=== PATIENT | female | born 2005 | race Caucasian/White ===

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

== ENCOUNTER 2024-03-04 17:00 | Emergency (ER) | payer OTHER ==
--- NOTE | 2024-03-04 17:14 | ERPHSYRPT ---
- History of Present Illness Source: patient, family Exam Limitations: no limitations Timing/Duration: day(s) (2), improved Quality: sharpness, stabbing Onset Location: suprapubic (Right greater than left but bilateral) Pain Radiation: none Severity of Pain-Max: moderate Severity of Pain-Current: mild Sexual intercourse history: non-contributory Associated Symptoms: fever, dysuria, , vaginal discharge <PHILL GARCIA - Last Filed: 03/04/24 18:47> <DON SAPP - Last Filed: 03/04/24 21:01> - History of Present Illness Time Seen by Provider: 03/04/24 17:14 Physician History: This is a 18-year-old white female patient of Dr. Bush who presents to the emergency department by private vehicle accompanied by her mother. She is here because approximately 2 days ago she had bilateral suprapubic cramping with the right side worse than the left associated with vaginal spotting. The vaginal spotting decreased but today she had cramping in the same area that was more generalized and equal in intensity. The pain is sharp. Yesterday she also had associated fever that was low-grade at 99.9 F. Patient has never had any abdominal surgeries in the past. Her last menstrual period began approximately January 15. The gestational age is no more than 6 weeks. Patient took a test 2 days ago and it was positive. Patient takes no medications chronically and she has no known drug allergies. (PHILL GARCIA) Allergies/Adverse Reactions: No Known Drug Allergies Allergy (Unverified 10/04/13 22:04) Home Medications: No Reportable Medications [No Reported Medications] 10/04/13 [History] Travel Risk - International Travel Have you traveled outside of the country in past 3 weeks: No - Emerging Infectious Disease Are you exhibiting symptoms associated with any current EIDs: No <PHILL GARCIA - Last Filed: 03/04/24 18:47> - Review of Systems Constitutional: Fever (Yesterday but none today) Eyes: No Symptoms Ears, Nose, & Throat: No Symptoms Respiratory: No Symptoms Cardiac: No Symptoms Abdominal/Gastrointestinal: Abdominal Pain Genitourinary Symptoms: Dysuria, Vaginal Bleeding Musculoskeletal: No Symptoms Skin: No Symptoms Neurological: No Symptoms Psychological: No Symptoms Endocrine: No Symptoms Hematologic/Lymphatic: No Symptoms Immunological/Allergic: No Symptoms All Other Systems: Reviewed and Negative <GARCIA,PHILL Jeffery - Last Filed: 03/04/24 18:47> - Past Medical History Pertinent Past Medical History: No (healthy child) Neurological History: No Pertinent History ENT History: No Pertinent History Cardiac History: No Pertinent History Respiratory History: No Pertinent History Endocrine Medical History: No Pertinent History Musculoskeletal History: Other GI Medical History: No Pertinent History History: No Pertinent History Psycho-Social History: No Pertinent History Female Reproductive Disorders: No Pertinent History - Past Surgical History Past Surgical History: No Neuro Surgical History: No Pertinent History Cardiac: No Pertinent History Respiratory: No Pertinent History Gastrointestinal: No Pertinent History Genitourinary: No Pertinent History Musculoskeletal: No Pertinent History Female Surgical History: No Pertinent History - Social History Smoking Status: Never smoker Exposure to second hand smoke: Yes Drug Use: none Patient 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) <JOSEPHILL MiloMary - Last Filed: 03/04/24 18:47> - Physical Exam General Appearance: no apparent distress, alert, anxiety Eye Exam: PERRL/EOMI, eyes nml inspection Ears, Nose, Throat Exam: normal ENT inspection, moist mucous membranes Neck Exam: normal inspection, non-tender, supple, full range of motion Respiratory Exam: airway intact, No chest tenderness, No respiratory distress Cardiovascular Exam: tachycardia Gastrointestinal/Abdomen Exam: soft, normal bowel sounds, tenderness (Mild tenderness bilateral suprapubic regions) Pelvic Exam: not done Rectal Exam: not done Back Exam: normal inspection, normal range of motion, No CVA tenderness, No v ertebral tenderness Extremity Exam: normal inspection, normal range of motion, pelvis stable Neurologic Exam: alert, oriented x 3, cooperative, mailing machine assistant II-XII nml as tested, nml cerebellar function, nml station & gait, sensation nml Skin Exam: normal color, warm, dry Lymphatic Exam: No adenopathy SpO2 Interpretation: normal O2 Delivery: Room Air <GARCIAPHILL Jeffery - Last Filed: 03/04/24 18:47> - Nursing Vital Signs Nursing Vital Signs: Initial Vital Signs Temperature 98.2 F 03/04/24 17:07 Pulse Rate 120 H 03/04/24 17:07 Respiratory Rate 18 03/04/24 17:07 Blood Pressure 144/102 03/04/24 17:07 O2 Sat by Pulse Oximetry 100 03/04/24 17:07 Pain Scale Pain Intensity 4 - Course Nursing assessment & vital signs reviewed: Yes <PHILL GARCIA - Last Filed: 03/04/24 18:47> Ordered Tests: Active Orders 24 hr Category Date Time Status IV Insertion STAT Care 03/04/24 17:29 Active OB <14 WKS 1ST GESTATION [US] Stat Exams 03/04/24 19:02 Taken AMYLASE Stat Lab 03/04/24 17:46 Completed CBC W DIFF Stat Lab 03/04/24 17:46 Completed CMP Stat Lab 03/04/24 17:46 Completed CULTURE,URINE Stat Lab 03/04/24 17:32 Received HCG QUALITATIVE, SERUM Stat Lab 03/04/24 17:46 Completed HCG, Quantitative (Inhouse) Stat Lab 03/04/24 17:46 Completed LIPASE Stat Lab 03/04/24 17:46 Completed Manual Differential NC Stat Lab 03/04/24 17:46 Completed UA W/RFX UR CULTURE Stat Lab 03/04/24 17:32 Completed Lab/Rad Data: Laboratory Result Diagrams 03/04/24 17:46 03/04/24 17:46 Laboratory Results 03/04/24 03/04/24 03/04/24 Range/Units 17:46 17:46 17:46 WBC (3.98-10.04) x10^3/uL RBC (3.93-5.22) x10^6/uL Hgb (11.2-15.7) g/dL Hct (34.1-44.9) % MCV (79.4-94.8) fL MCH (25.6-32.2) pg MCHC (32.2-35.5) g/dL RDW (11.7-14.4) % Plt Count (182-369) x10^3/uL MPV (9.4-12.3) fL Sodium 137 (135-145) mmol/L Potassium 3.6 (3.5-5.1) mmol/L Chloride 102 (98-107) mmol/L Carbon Dioxide 24 (22-30) mmol/L Anion Gap 15.4 H (5-15) MEQ/L BUN 5 L (7-17) mg/dL Creatinine 0.62 (0.52-1.04) mg/dL Estimated GFR 131.5 ML/MIN Glucose 122 H (74-106) mg/dL Calcium 10.1 (8.4-10.2) mg/dL Total Bilirubin 0.70 (0.2-1.3) mg/dL AST 22 (14-36) U/L ALT 20 (0-35) U/L Alkaline Phosphatase 52 (38-126) U/L Serum Total Protein 7.7 (6.3-8.2) g/dL Albumin 4.7 (3.5-5.0) g/dL Amylase 55 (30-110) U/L Lipase 30 (23-300) U/L Serum HCG, Qual POSITIVE (NEGATIVE) Beta HCG, Quant 6584.2 mIU/ml Urine Color (Yellow) Urine Appearance (Clear) Urine pH (4.6-8.0) Ur Specific [place] (1.005-1.030) Urine Protein (Negative) Urine Glucose (UA) (Negative) mg/dL Urine Ketones (Negative) Urine Blood (Negative) Urine Nitrite (Negative) Urine Bilirubin (Negative) Urine Urobilinogen (0.2) mg/dL Ur Leukocyte Esterase (Negative) U Hyaline Cast (Auto) (0-2) /LPF Urine Microscopic RBC (0-5) /HPF Urine Microscopic WBC (0-5) /HPF Ur Epithelial Cells (None Seen) /HPF Urine Bacteria (None Seen) /HPF Urine Culture Reflexed (NO) 03/04/24 03/04/24 Range/Units 17:46 17:32 WBC 9.0 (3.98-10.04) x10^3/uL RBC 4.38 (3.93-5.22) x10^6/uL Hgb 13.5 (11.2-15.7) g/dL Hct 38.2 (34.1-44.9) % MCV 87.2 (79.4-94.8) fL MCH 30.8 (25.6-32.2) pg MCHC 35.3 (32.2-35.5) g/dL RDW 12.3 (11.7-14.4) % Plt Count 457 H (182-369) x10^3/uL MPV 8.4 L (9.4-12.3) fL Sodium (135-145) mmol/L Potassium (3.5-5.1) mmol/L Chloride (98-107) mmol/L Carbon Dioxide (22-30) mmol/L Anion Gap (5-15) MEQ/L BUN (7-17) mg/dL Creatinine (0.52-1.04) mg/dL Estimated GFR ML/MIN Glucose (74-106) mg/dL Calcium (8.4-10.2) mg/dL Total Bilirubin (0.2-1.3) mg/dL AST (14-36) U/L ALT (0-35) U/L Alkaline Phosphatase (38-126) U/L Serum Total Protein (6.3-8.2) g/dL Albumin (3.5-5.0) g/dL Amylase (30-110) U/L Lipase (23-300) U/L Serum HCG, Qual (NEGATIVE) Beta HCG, Quant mIU/ml Urine Color Yellow (Yellow) Urine Appearance Clear (Clear) Urine pH 5.5 (4.6-8.0) Ur Specific [place] 1.020 (1.005-1.030) Urine Protein Trace A (Negative) Urine Glucose (UA) Negative (Negative) mg/dL Urine Ketones 40 A (Negative) Urine Blood Large A (Negative) Urine Nitrite Negative (Negative) Urine Bilirubin Negative (Negative) Urine Urobilinogen 0.2 (0.2) mg/dL Ur Leukocyte Esterase Negative (Negative) U Hyaline Cast (Auto) 3-5 A (0-2) /LPF Urine Microscopic RBC 21-50 A (0-5) /HPF Urine Microscopic WBC 0-2 (0-5) /HPF Ur Epithelial Cells None Seen (None Seen) /HPF Urine Bacteria None Seen (None Seen) /HPF Urine Culture Reflexed YES (NO) - Progress Progress: improved, re-examined Air Movement: good <PHILL GARCIA - Last Filed: 03/04/24 18:47> - Progress Blood Culture(s) Obtained: No Antibiotics given: No Counseled pt/family regarding: lab results, diagnosis, need for follow-up, rad results <DON SAPP - Last Filed: 03/04/24 21:01> - Progress Progress Note: 03/04/24 17:52 My medical decision making and the assignment of moderate complexity to this patient's medical issue today is based on review of the patient's past medical history, review of the patient's medication list, review the patient drug allergy list, history present illness and physical findings on examination. The workup in the patient includes placement of an intravenous line, CBC, CMP, serum test, urinalysis, serum quantitative test, amylase and lipase. Differential diagnosis includes but is not limited to miscarriage, impending miscarriage, ovarian cyst, ectopic , acute appendicitis 03/04/24 18:47 I am transferring care of this patient to Dr. Don Sapp at shift change. He will follow-up on pending studies and make final disposition. (PHILL GACRIA) 18-year-old female presents to our ED vaginal bleeding. Patient evaluated by Dr. Garcia. Dr. Sapp advised to follow-up on pending ultrasound. Ultrasound reveals a viable 6-week 3-day old IUP. The IUP appears to be at the lower uterine segment. heart tone is 85. Vaginal bleeding is minimal at this time. Cramping significantly improved. Patient states she is ready for discharge. Urine GC chlamydia and vaginal panel pending. Patient self swabbed for vaginal panel. We will follow-up on these laboratory findings and notify patient of any abnormalities. At this point patient has not declared a [employer] [facility] physician to follow-up with. Patient states she will follow-up with her primary care doctor in the meantime. Beta quant is 6584. Vital stable. Patient resting comfortably. Patient eating a Ramirez sandwich. Patient states she is ready for discharge. Mother at bedside. They voiced no other complaints or c oncerns at this time. Portions of this note were created with voice recognition technology. There may be grammatical, spelling, punctuation or sound alike errors 03/04/24 20:57 (DON SAPP) Medical Desision Making - Independent Historian Additional History obtained from: Mother <PHILL GARCIA - Last Filed: 03/04/24 18:47> - Departure Departure Disposition: Home Critical Care Time: No <PHILL GARCIA - Last Filed: 03/04/24 18:47> <DON SAPP - Last Filed: 03/04/24 21:01> - Departure Clinical Impression: Vaginal bleeding affecting early , Suprapubic pain, acute, Threatened miscarriage in early Condition: Stable Referrals: KAYCE BUSH MD [Primary Care Provider] - Follow up/PCP as directed Additional Instructions: Discharge/Care Plan FELIBERTO HUYNH was seen on 03/04/24 in the Emergency Room. The patient was counseled regarding Diagnosis,Lab results, Imaging studies, need for follow up a nd when to return to the Emergency Room. Prescriptions given: Discharge Note I have spoken with the patient and/or caregivers. I have explained the patient's condition, diagnosis and treatment plan based on the information available to me at this time. I have answered the patient's and/or caregiver's questions and addressed any concerns. The patient and/or caregivers have as good understanding of the patient's diagnosis, condition and treatment plan as can be expected at this point. The vital signs have been stable. The patient's condition is stable and appropriate for discharge from the emergency department. The patient will pursue further outpatient evaluation with the primary care physician or other designated or consulting physician as outlined in the discharge instructions. The patient and/or caregivers are agreeable to this plan of care and follow-up instructions have been explained in detail. The patient and/or caregivers have received these instruction. The patient/and or caregivers are aware that any significant change in condition or worsening of symptoms should prompt an immediate return to this or the closest emergency department or call 911.
[2024-03-04 17:19] VITALS: TEMP 98.2
[2024-03-04 17:53] LABS: Hematocrit 38.2 % (34.1-44.9); Hemoglobin 13.5 g/dL (11.2-15.7); Mean Cell Volume 87.2 fL (79.4-94.8); Mean Corpuscular Hemoglobin 30.8 pg (25.6-32.2); Mean Corpuscular Hgb Concent. 35.3 g/dL (32.2-35.5); Mean Platelet Volume 8.4 fL (9.4-12.3); Platelet Count 457 x10^3/uL (182-369); Red Blood Count 4.38 x10^6/uL (3.93-5.22); Red Cell Distribution Width 12.3 % (11.7-14.4)
[2024-03-04 18:00] LABS: Appearance Clear (Clear); Bacteria None Seen /HPF (None Seen); Bilirubin Negative (Negative); Blood Large (Negative); Epithelial Cells None Seen /HPF (None Seen); Glucose, Urine Negative (Negative); Ketones 40 (Negative); Leukocyte Esterase Negative (Negative); Nitrite Negative (Negative); Ph 5.5 (4.6-8.0); Protein,Urine Dip Trace (Negative); RBC 21-50 /HPF (0-5); Urobilinogen 0.2 mg/dL (0.2); WBC 0-2 /HPF (0-5)
[2024-03-04 18:01] LABS: HCG SERUM TEST POSITIVE (NEGATIVE)
[2024-03-04 18:08] LABS: ALBUMIN 4.7 g/dL (3.5-5.0); ANION GAP 15.4 MEQ/L (5-15); BILIRUBIN,TOTAL 0.7 mg/dL (0.2-1.3); Calcium 10.1 mg/dL (8.4-10.2); Creatinine 1 0.62 mg/dL (0.52-1.04); EST GLOMERULAR FILTRATION RATE 131.5 ML/MIN; Potassium 3.6 mmol/L (3.5-5.1); Total Protein 7.7 g/dL (6.3-8.2)
[2024-03-04 19:19] VITALS: RESP 18; O2SAT 98
[2024-03-04 20:43] VITALS: BP 144/97; PULSE 80
--- NOTE | 2024-03-04 21:01 | XRAY ---
Indication: Vaginal bleeding. Spotting. Two-dimensional transvaginal early OB ultrasound performed. Comparison: None Single intrauterine gestational sac with mean sac diameter 0.54 cm, too small to calculate gestational age. Single pole with mean crown-rump length 0.64 cm corresponding to 6 weeks 3 days. heart rate 85 BPM. Tiny 3 x 4 mm subchorionic hemorrhage. Impression: Single viable intrauterine measuring 6 weeks 3 days. Expected date confinement is October 25, 2024. Tiny subchorionic hemorrhage. Comment: Preliminary report was given.
[2024-03-04] MEDS ORDERED: TYLENOL 325 MG ONE (21:08)
[2024-03-04] MEDS: TYLENOL 325 MG PO ONE (21:10)
[2024-03-04 21:50] LABS: Candida Group NOT DETECTED (NEGATIVE); Candida glab/krus NOT DETECTED (NEGATIVE)
[2024-03-04 23:58] LABS: ANISOCYTOSIS 1+; ATYPICAL LYMPHS 2 %; Basophil 2 % (0.1-1.2); Lymphocytes 30 % (19.3-51.7); Macrocytosis 1+; Monocyte 10 % (4.7-12.5); Neutrophils 56 % (34.0-71.1); Platelet Estimate INCREASED (NORMAL); Total Cells Counted 100
== END 2024-03-04 21:19 | disposition home or self-care (01) ==
LOC: ED 17:00
DX: O20.0 Threatened abortion (principal); Z3A.01 Less than 8 weeks gestation of pregnancy; R10.2 Pelvic and perineal pain
CPT/HCPCS: 36415; 76801; 80053; 81001; 82150; 83690; 84702; 84703; 85025; 87086; 87481; 87661; 87801; 99284; A9270-GY

== ENCOUNTER 2024-03-13 15:20 | Emergency (ER) | payer OTHER ==
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
[2024-03-13 15:35] VITALS: RESP 20; TEMP 98.1; O2SAT 100
[2024-03-13 16:40] LABS: Appearance Clear (Clear); Bacteria None Seen /HPF (None Seen); Bilirubin Negative (Negative); Blood Negative (Negative); Epithelial Cells None Seen /HPF (None Seen); Glucose, Urine Negative (Negative); Hyaline Casts NONE SEEN /LPF (0-2); Ketones Negative (Negative); Leukocyte Esterase Negative (Negative); Nitrite Negative (Negative); Protein,Urine Dip Negative (Negative); RBC 0-2 /HPF (0-5); Specific Gravity <=1.005 (1.005-1.030); Urobilinogen 0.2 mg/dL (0.2); WBC 0-2 /HPF (0-5)
[2024-03-13 16:43] VITALS: PULSE 102
[2024-03-13 16:55] LABS: Absolute Neutrophil Ct (ANC) 5.44 x10^3/uL (1.56-6.13); BASOPHIL % 0.6 % (0.1-1.2); Basophil (Absolute #) 0.05 x10^3/uL (0.01-0.08); Eosinophil % 1.3 % (0.7-5.8); Hematocrit 39.3 % (34.1-44.9); Hemoglobin 13.3 g/dL (11.2-15.7); IMMATURE GRAN # 0.01 x10^3u/L (0.001-0.031); IMMATURE GRAN % 0.1 % (0.001-0.429); Lymphocyte (Absolute #) 1.64 x10^3/uL (1.18-3.74); Lymphocytes % 21.1 % (19.3-51.7); Mean Cell Volume 88.5 fL (79.4-94.8); Mean Corpuscular Hgb Concent. 33.8 g/dL (32.2-35.5); Mean Platelet Volume 8.8 fL (9.4-12.3); Monocyte (Absolute #) 0.53 x10^3/uL (0.24-0.86); Monocytes % 6.8 % (4.7-12.5); Neutrophil % 70.1 % (34.0-71.1); Platelet Count 440 x10^3/uL (182-369); Red Blood Count 4.44 x10^6/uL (3.93-5.22); Red Cell Distribution Width 12.7 % (11.7-14.4); White Blood Count 7.8 x10^3/uL (3.98-10.04)
[2024-03-13 17:10] LABS: HCG SERUM TEST POSITIVE (NEGATIVE)
[2024-03-13 17:27] LABS: ALBUMIN 5.1 g/dL (3.5-5.0); ANION GAP 15.2 MEQ/L (5-15); BILIRUBIN,TOTAL 0.5 mg/dL (0.2-1.3); Calcium 9.9 mg/dL (8.4-10.2); Creatinine 1 0.62 mg/dL (0.52-1.04); EST GLOMERULAR FILTRATION RATE 131.5 ML/MIN; HCG, Quantitative (Inhouse) 22.28 mIU/ml; Potassium 3.3 mmol/L (3.5-5.1); Total Protein 8.7 g/dL (6.3-8.2)
[2024-03-13 17:50] VITALS: BP 164/111
--- NOTE | 2024-03-13 17:56 | XRAY ---
Indication: First trimester bleeding. Two-dimensional transvaginal early OB ultrasound performed. Comparison: March 04, 2024 Uterus anteverted measuring 6.0 x 2.8 x 4.1 cm. No intrauterine gestational sac, pole, heart tones, or abnormal fluid collection. Endocervix is close. Right ovary measures 2.8 x 1.4 x 1.6 cm and left measures 3.4 x 1.5 x 2.6 cm. Normal follicular cysts and perfusion bilaterally. No suspicious adnexal mass or free fluid. Impression: No intrauterine/ectopic . Previous intrauterine is absent favoring spontaneous miscarriage. Comment: Preliminary report was given.
== END 2024-03-13 17:45 | disposition left against medical advice (07) ==
LOC: ED 15:20
DX: S00.83XA Contusion of other part of head, initial encounter (principal); R42 Dizziness and giddiness; O03.9 Complete or unspecified spontaneous abortion without complication; V48.0XXA Car driver injured in noncollision transport accident in nontraffic accident, initial encounter; R19.7 Diarrhea, unspecified
CPT/HCPCS: 36415; 76817; 80053; 81001; 84702; 84703; 85025; 99283; 99284